=== PATIENT | male | born 1995 | race African-American/Black ===

== ENCOUNTER 2019-09-10 04:03 | Emergency (ER) | payer OTHER ==
[~2019-09-10] VITALS: Ht 177.8 cm; Wt 81.7 kg
[2019-09-10 04:04] VITALS: BP 135/87
== END 2019-09-10 04:45 | disposition home or self-care (01) ==
LOC: ER 04:03
DX: S90.111A Contusion of right great toe without damage to nail, initial encounter (principal); W22.03XA Walked into furniture, initial encounter; Y93.89 Activity, other specified; Y92.69 Other specified industrial and construction area as the place of occurrence of the external cause; Y99.9 Unspecified external cause status